=== PATIENT | female | born 1930 | race Caucasian/White ===

== ENCOUNTER 2017-02-20 06:54 | Inpatient (IN) | payer MEDICARE, MEDICAID ==
[~2017-02-20] VITALS: Ht 157.5 cm; Wt 93.1 kg
[~2017-02-20 06:54] MED LIST: AMLO5TAB2 PO; ASPI-621 PO; HYDR-3144 PO; MAGN400T7 PO; METO-95 PO; MULT-479 PO; SIMV20TA PO
[2017-02-20] MEDS ORDERED: SODIUM CHLORIDE 0.9% 1,000ML IVBOLUS ONE (08:00)
[2017-02-20] MEDS ORDERED: ONDANSETRON 2MG/ML, 2ML IVPush ONE (08:00)
[2017-02-20] MEDS ORDERED: SODIUM CHLORIDE FLUSH 10ML SYR IVF ONE (08:00)
[2017-02-20] MEDS ORDERED: LISI30TA4 PO (08:05)
[2017-02-20] MEDS ORDERED: SODIUM CHLORIDE 0.9% 1,000 ML IV ONE ×3 (08:15→09:39)
[2017-02-20 08:17] LABS: ASPARTATE AMINO TRANSFERASE 13 U/L (15-37); BLOOD UREA NITROGEN 25 mg/dL (7-18)
[2017-02-20] MEDS ORDERED: ONDANSETRON 2MG/ML, 2ML ONE (08:31)
[2017-02-20] MEDS ORDERED: SODIUM CHLORIDE FLUSH 10ML SYR IVF PRN (10:00)
[2017-02-20 11:27] VITALS: BP 178/82
[2017-02-20] MEDS ORDERED: ACETAMINOPHEN 325 MG TABLET PO PRN (12:00)
[2017-02-20] MEDS ORDERED: PROMETHAZINE 25 MG/ML, 1ML IM PRN (12:00)
[2017-02-20 12:33] VITALS: BP 146/79
[2017-02-20] MEDS: ONDANSETRON ODT 4 MG PO PRN (12:51)
[2017-02-20] MEDS: NS + 20MEQ KCL 1,000 ML IV SCH ×2 (12:52→20:07)
[2017-02-20 13:07] VITALS: BP 178/82
[2017-02-20] MEDS: HEPARIN 5,000 UNITS/ML, 1ML SQ SCH ×2 (14:39→20:49)
[2017-02-20] MEDS: HYDROcodone/APAP 5/325 TABLET PO PRN (14:39)
[2017-02-20] MEDS ORDERED: TRAZODONE 50MG TABLET PO PRN (15:00)
[2017-02-20 16:19] VITALS: BP 143/98
[2017-02-20 19:40] VITALS: BP 165/84
[2017-02-20] MEDS: HYDROcodone/APAP 10/325 MG TABLET PO SCH (20:48)
[2017-02-20] MEDS: SIMVASTATIN 20 MG TABLET PO SCH (20:49)
[2017-02-20 21:26] LABS: POTASSIUM,URINE RANDOM 55 mmol/L
[2017-02-21] VITALS (8 sets, daily range): BP systolic 145–200; BP diastolic 76–92
[2017-02-21] MEDS: HEPARIN 5,000 UNITS/ML, 1ML SQ SCH (04:10)
[2017-02-21] MEDS: ENALAPRILAT 1.25 MG/ML, 2ML IVPush PRN ×2 (04:17→12:29)
[2017-02-21 04:18] LABS: BLOOD UREA NITROGEN 17 mg/dL (7-18)
[2017-02-21] MEDS ORDERED: SODIUM CHLORIDE 1 GM TABLET PO ONE (05:00)
[2017-02-21] MEDS ORDERED: LABETALOL 5MG/ML, 20ML IV PRN ×2 (06:30→07:00)
[2017-02-21] MEDS: LABETALOL MC SCH ×3 (06:30→22:30)
[2017-02-21] MEDS: CLOPIDOGREL MC SCH ×3 (08:30→22:48)
[2017-02-21] MEDS: CALCITRIOL 0.25 MCG CAPSULE PO SCH (08:59)
[2017-02-21] MEDS ORDERED: CLOPIDOGREL 75 MG TABLET PO SCH (09:00)
[2017-02-21] MEDS: METOPROLOL SUCCINATE 50 MG TAB.ER.24H PO SCH (09:00)
[2017-02-21] MEDS: AMLODIPINE 5 MG TABLET PO SCH (09:00)
[2017-02-21] MEDS: HYDROcodone/APAP 10/325 MG TABLET PO SCH ×2 (09:00→21:00)
[2017-02-21] MEDS ORDERED: LISINOPRIL 10 MG TABLET PO SCH (09:00)
[2017-02-21] MEDS ORDERED: AMLODIPINE 5 MG TABLET PO SCH (09:00)
[2017-02-21] MEDS ORDERED: METOPROLOL SUCCINATE 100 MG TAB.ER.24H PO SCH (09:00)
[2017-02-21] MEDS: CLOPIDOGREL 75 MG TABLET PO SCH (10:47)
[2017-02-21] MEDS ORDERED: NS + 20MEQ KCL 1,000 ML IV SCH (11:44)
[2017-02-21] MEDS ORDERED: LISINOPRIL 20 MG TABLET PO ONE (14:00)
[2017-02-21] MEDS: ONDANSETRON ODT 4 MG PO PRN (14:35)
[2017-02-21] MEDS: SODIUM CHLORIDE 1 GM TABLET PO SCH ×2 (16:05→21:50)
[2017-02-21] MEDS ORDERED: SODIUM CHLORIDE 0.9% 1,000 ML IV SCH (21:00)
[2017-02-21] MEDS: SIMVASTATIN 20 MG TABLET PO SCH (21:50)
[2017-02-21] MEDS: HYDROcodone/APAP 5/325 TABLET PO PRN (23:37)
[2017-02-22 01:36] VITALS: BP 180/76
[2017-02-22] MEDS ORDERED: SODIUM CHLORIDE 0.9% 1,000 ML IV SCH ×2 (05:00→21:00)
[2017-02-22] MEDS: LABETALOL MC SCH ×2 (05:06→14:30)
[2017-02-22 06:44] LABS: ASPARTATE AMINO TRANSFERASE 13 U/L (15-37); BLOOD UREA NITROGEN 10 mg/dL (7-18)
[2017-02-22 06:45] VITALS: BP 151/82
[2017-02-22] MEDS: CLOPIDOGREL MC SCH ×2 (08:25→16:30)
[2017-02-22] MEDS: CALCIUM CARBONATE 500 MG TAB.CHEW PO SCH (08:26)
[2017-02-22] MEDS: HYDROcodone/APAP 10/325 MG TABLET PO SCH ×2 (08:26→20:55)
[2017-02-22] MEDS: CALCITRIOL 0.25 MCG CAPSULE PO SCH (08:26)
[2017-02-22] MEDS: LISINOPRIL 20 MG TABLET PO SCH (08:27)
[2017-02-22] MEDS: SODIUM CHLORIDE 1 GM TABLET PO SCH ×3 (08:27→20:55)
[2017-02-22] MEDS: CLOPIDOGREL 75 MG TABLET PO SCH (08:28)
[2017-02-22] MEDS: AMLODIPINE 5 MG TABLET PO SCH (08:28)
[2017-02-22] MEDS: METOPROLOL SUCCINATE 50 MG TAB.ER.24H PO SCH (08:30)
[2017-02-22 12:55] VITALS: BP 124/76
[2017-02-22] MEDS ORDERED: FUROSEMIDE 20 MG TABLET PO ONE (15:00)
[2017-02-22] MEDS ORDERED: SODIUM CHLORIDE 3% 500 ML IV PRN (18:30)
[2017-02-22 19:21] VITALS: BP 157/80
[2017-02-22] MEDS: SIMVASTATIN 20 MG TABLET PO SCH (20:55)
[2017-02-22 21:34] LABS: POTASSIUM,URINE RANDOM 4 mmol/L
[2017-02-23 00:55] VITALS: BP 147/72
[2017-02-23 04:35] LABS: BLOOD UREA NITROGEN 9 mg/dL (7-18)
[2017-02-23 04:38] LABS: ASPARTATE AMINO TRANSFERASE 10 U/L (15-37)
[2017-02-23] MEDS ORDERED: SODIUM CHLORIDE 0.9% 1,000 ML IV SCH (05:00)
[2017-02-23] MEDS ORDERED: MAGNESIUM SULFATE PMX 2GM/50ML 50 ML IV ONE (06:30)
[2017-02-23 07:02] VITALS: BP 128/77
[2017-02-23] MEDS: METOPROLOL SUCCINATE 50 MG TAB.ER.24H PO SCH (08:07)
[2017-02-23] MEDS: CALCIUM CARBONATE 500 MG TAB.CHEW PO SCH (08:07)
[2017-02-23] MEDS: DEXTROSE 5% 1,000 ML IV SCH ×2 (08:07→21:06)
[2017-02-23] MEDS: SPIRONOLACTONE 25 MG TABLET PO SCH (08:07)
[2017-02-23] MEDS: HYDROcodone/APAP 10/325 MG TABLET PO SCH ×2 (08:08→21:01)
[2017-02-23] MEDS: AMLODIPINE 5 MG TABLET PO SCH (08:08)
[2017-02-23] MEDS: CALCITRIOL 0.25 MCG CAPSULE PO SCH (08:08)
[2017-02-23] MEDS: LISINOPRIL 20 MG TABLET PO SCH (08:08)
[2017-02-23] MEDS: CLOPIDOGREL 75 MG TABLET PO SCH (08:08)
[2017-02-23] MEDS: FERROUS SULFATE 325 MG TABLET PO SCH ×2 (12:53→17:00)
[2017-02-23 13:07] VITALS: BP 110/69
[2017-02-23 19:16] VITALS: BP 110/64
[2017-02-23] MEDS: SIMVASTATIN 20 MG TABLET PO SCH (21:02)
[2017-02-24 01:18] VITALS: BP 121/73
[2017-02-24 06:08] LABS: BLOOD UREA NITROGEN 10 mg/dL (7-18); TOTAL IRON BINDING CAPACITY 258 mcg/dL (250-450)
[2017-02-24 06:51] VITALS: BP 94/57
[2017-02-24] MEDS: LISINOPRIL 20 MG TABLET PO SCH (09:00)
[2017-02-24] MEDS: AMLODIPINE 5 MG TABLET PO SCH (09:00)
[2017-02-24] MEDS: HYDROcodone/APAP 10/325 MG TABLET PO SCH ×2 (09:04→22:35)
[2017-02-24] MEDS: FERROUS SULFATE 325 MG TABLET PO SCH ×3 (09:04→17:05)
[2017-02-24] MEDS: CALCITRIOL 0.25 MCG CAPSULE PO SCH (09:04)
[2017-02-24] MEDS: SPIRONOLACTONE 25 MG TABLET PO SCH (09:04)
[2017-02-24] MEDS: CALCIUM CARBONATE 500 MG TAB.CHEW PO SCH (09:04)
[2017-02-24] MEDS: METOPROLOL SUCCINATE 50 MG TAB.ER.24H PO SCH (09:06)
[2017-02-24] MEDS: CLOPIDOGREL 75 MG TABLET PO SCH (09:15)
[2017-02-24] MEDS: DEXTROSE 5% 1,000 ML IV SCH (09:17)
[2017-02-24 09:20] VITALS: BP 119/80
[2017-02-24 12:25] VITALS: BP 103/67
[2017-02-24 19:38] VITALS: BP 115/75
[2017-02-24] MEDS ORDERED: ENALAPRILAT 1.25 MG/ML, 2ML IVPush PRN (22:19)
[2017-02-24] MEDS: SIMVASTATIN 20 MG TABLET PO SCH (22:35)
[2017-02-25 02:00] VITALS: BP 149/85
[2017-02-25 05:59] LABS: BLOOD UREA NITROGEN 9 mg/dL (7-18)
[2017-02-25] MEDS ORDERED: DEXTROSE 5% 1,000 ML IV SCH (07:00)
[2017-02-25] MEDS: CALCITRIOL 0.25 MCG CAPSULE PO SCH (08:20)
[2017-02-25] MEDS: METOPROLOL SUCCINATE 50 MG TAB.ER.24H PO SCH (08:20)
[2017-02-25] MEDS: FERROUS SULFATE 325 MG TABLET PO SCH (08:21)
[2017-02-25] MEDS: CALCIUM CARBONATE 500 MG TAB.CHEW PO SCH (08:21)
[2017-02-25] MEDS: LISINOPRIL 20 MG TABLET PO SCH (08:21)
[2017-02-25] MEDS: CLOPIDOGREL 75 MG TABLET PO SCH (08:21)
[2017-02-25] MEDS: AMLODIPINE 5 MG TABLET PO SCH (08:21)
[2017-02-25] MEDS: SPIRONOLACTONE 25 MG TABLET PO SCH (08:21)
[2017-02-25 08:30] VITALS: BP 134/83
[2017-02-25] MEDS: HYDROcodone/APAP 10/325 MG TABLET PO SCH (09:00)
[2017-02-25] MEDS ORDERED: SPIR25TA PO (09:03)
[2017-02-25 12:22] LABS: ASPARTATE AMINO TRANSFERASE 4 U/L (15-37); BLOOD UREA NITROGEN 8 mg/dL (7-18)
== END 2017-02-25 12:40 | disposition home health service (06) | DRG 644 ==
LOC: ED 07:37 → EDIP 09:39 → 4EST 11:08
PROVIDERS: ADMIT Family Medicine; ATTEND Family Medicine
DX: E22.2 Syndrome of inappropriate secretion of antidiuretic hormone (principal); I69.354 Hemiplegia and hemiparesis following cerebral infarction affecting left non-dominant side; A08.4 Viral intestinal infection, unspecified; I10 Essential (primary) hypertension; E78.00 Pure hypercholesterolemia, unspecified; M19.90 Unspecified osteoarthritis, unspecified site; J44.9 Chronic obstructive pulmonary disease, unspecified; E78.5 Hyperlipidemia, unspecified; G47.00 Insomnia, unspecified; E86.0 Dehydration; E83.42 Hypomagnesemia; E83.39 Other disorders of phosphorus metabolism; D50.9 Iron deficiency anemia, unspecified; Z87.891 Personal history of nicotine dependence; Z90.49 Acquired absence of other specified parts of digestive tract; Z99.81 Dependence on supplemental oxygen
CPT/HCPCS: 36415; 71010; 74176; 76770; 78707; 80048; 80053; 80069; 81001; 82040; 82306; 82436; 82570; 82728; 83540; 83550; 83735; 83930; 83935; 83970; 84100; 84133; 84156; 84295; 84300; 84550; 85025; 87086; 87324; 89055; 93005; 96361; 96374; 99283; J1644; J2405; J2550; J3480; J7070; Q0162; A9562; C9898; J3475; J7030

== ENCOUNTER 2018-05-14 08:33 | Emergency (ER) | payer MEDICAID, MEDICARE ==
[~2018-05-14] VITALS: Ht 160 cm; Wt 84.0 kg
[~2018-05-14 08:33] MED LIST changes: -HYDR-3144 PO; +HYDR-3245 PO; +LISI30TA4 PO; +SPIR25TA PO
[2018-05-14 08:39] VITALS: BP 188/94
[2018-05-14] MEDS ORDERED: HYDROcodone/APAP 10/325 MG TABLET PO ONE (09:30)
[2018-05-14] MEDS ORDERED: HYDROcodone/APAP 10/325 MG TABLET ONE (09:31)
[2018-05-14 09:46] LABS: ALANINE AMINOTRANSFERASE 13 U/L (12-78); ALBUMIN 3.6 g/dL (3.4-5.0); ANION GAP 8 mmol/L (5-15); CALCIUM 8.5 mg/dL (8.5-10.1); CHLORIDE 98 mmol/L (98-107); CREATININE 0.75 mg/dL (0.55-1.02)
[2018-05-14 09:48] LABS: ALKALINE PHOSPHATASE 77 U/L (45-117); BILIRUBIN,TOTAL 0.7 mg/dL (0.2-1.0); TOTAL PROTEIN 7.2 g/dL (6.4-8.2)
== END 2018-05-14 10:32 | disposition home or self-care (01) ==
LOC: ED 10:00
DX: F11.23 Opioid dependence with withdrawal (principal); I10 Essential (primary) hypertension; Z86.73 Personal history of transient ischemic attack (TIA), and cerebral infarction without residual deficits
CPT/HCPCS: 36415; 80053; 99283